=== PATIENT | male | born 1960 | race African-American/Black ===

== ENCOUNTER 2019-04-03 01:55 | Emergency (ER) | payer SELFPAY ==
[2019-04-03] MEDS ORDERED: LABETALOL HCL INJ 20 MG/4 ML DISP.SYRIN IV ONE ×2 (02:42→04:17)
--- NOTE | 2019-04-03 02:46 | ER Document Report ---
ED General - General Chief Complaint: Weakness Stated Complaint: FEELING WEAK,HYPERTENSION Time Seen by Provider: 04/03/19 02:13 - HPI Notes: This is a 58-year-old gentleman who presents today with a complaint of elevated blood pressure and generalized weakness. Patient states that he just feels weak and fatigued. States his blood pressure shot up shortly after he ate. He admits to doing marijuana. EMS reports that he also did some cocaine. Patient did not give me that history. He denies any chest pain. He denies any cardiopulmonary symptoms. He denies any headache. He describes his symptoms as moderate. Patient admits that he has missed some doses of his blood pressure medication. He does, however, have the medication at home. Past Medical History - Social History Smoking Status: Current Some Day Smoker Frequency of alcohol use: None Drug Abuse: Marijuana Family History: Hypertension Patient has suicidal ideation: No Patient has homicidal ideation: No Review of Systems - Review of Systems Constitutional: Malaise, Weakness. denies: Fever Cardiovascular: denies: Chest pain Gastrointestinal: denies: Abdominal pain Neurological/Psychological: Weakness. denies: Numbness Physical Exam - Vital signs Vitals: Resp Pulse Ox 11 L 99 04/03/19 02:16 04/03/19 02:16 Interpretation: Normal - General General appearance: Appears well, Alert - Respiratory Respiratory status: No respiratory distress Chest status: Nontender Breath sounds: Normal Chest palpation: Normal - Cardiovascular Rhythm: Regular Heart sounds: Normal auscultation Murmur: No - Abdominal Inspection: Normal Distension: No distension Bowel sounds: Normal Tenderness: Nontender Organomegaly: No organomegaly - Back Back: Normal, Nontender - Extremities General upper extremity: Normal inspection, Nontender, Normal color, Normal ROM, Normal temperature General lower extremity: Normal inspection, Nontender, Normal color, Normal ROM, Normal temperature. No: Ignacio's sign - Neurological Cognition: Normal Orientation: AAOx4 Gwendolyn Coma Scale Verbal: Oriented - There is no motor, sensory or cerebellar deficits. Nonfocal neurologic exam. GCS is 15. - Skin Skin Temperature: Warm Skin Moisture: Dry Course - Re-evaluation Re-evalutation: 04/03/19 02:46 Differential diagnosis includes essential hypertension versus elect light abnormality versus drug-induced hypertension. Given complaint of weakness, I will get CT scan. Will check basic labs. 04/03/19 05:13 Pt re-evaluated. Doing well. Feels much better. LAbs and imaging reviewed and discussed. BP improved. Pt counseled to take his blood pressure medication as prescribed. He sis table for discharge. - Vital Signs Vital signs: Temp Pulse Resp BP Pulse Ox 80 21 H 154/87 H 100 04/03/19 02:27 04/03/19 05:00 04/03/19 04:40 04/03/19 05:00 - Laboratory Result Diagrams: 04/03/19 02:55 04/03/19 02:55 Laboratory results interpreted by me: 04/03/19 04/03/19 02:55 02:55 RDW 16.5 H Potassium 3.3 L Glucose 157 H Acetaminophen < 10 L Discharge - Discharge Clinical Impression: Weakness Hypertension Qualifiers: Hypertension type: unspecified Qualified Code(s): I10 - Essential (primary) hypertension Condition: Good Disposition: HOME, SELF-CARE Instructions: High Blood Pressure ([facility]), Weakness ([facility]) Additional Instructions: It is important that you take your blood pressure medications as prescribed. Do not miss any doses again. Follow-up with your doctor. Forms: Elevated Blood Pressure
[2019-04-03 03:12] LABS: ABSOLUTE BASOPHILS # (AUTO) 0.1 10^3/uL (0.0-0.2); ABSOLUTE LYMPHOCYTES (AUTO) 1.5 10^3/uL (0.5-4.7); ABSOLUTE MONOCYTES (AUTO) 0.9 10^3/uL (0.1-1.4); ABSOLUTE NEUT (AUTO) 7.1 10^3/uL (1.7-8.2); BASOPHILS % (AUTO) 0.6 % (0-2); EOSINOPHILS % (AUTO) 0.4 % (0-6); HEMATOCRIT 43.1 % (37.9-51.0); HEMOGLOBIN 14.3 g/dL (13.5-17.0); LYMPHOCYTES % (AUTO) 15.5 % (13-45); MEAN CORPUSCULAR HEMOGLOBIN 28.3 pg (27.0-33.4); MEAN CORPUSCULAR HGB CONC 33.2 g/dL (32.0-36.0); MEAN CORPUSCULAR VOLUME 85 fl (80-97); MONOCYTES % (AUTO) 9.3 % (3-13); PLATELET COUNT 166 10^3/uL (150-450); RED BLOOD COUNT 5.07 10^6/uL (4.35-5.55); RED CELL DISTRIBUTION WIDTH 16.5 % (11.5-14.0); SEGMENTED NEUTROPHILS % (AUTO) 74.2 % (42-78); TOTAL CELLS COUNTED % (AUTO) 100 %; WHITE BLOOD COUNT 9.5 10^3/uL (4.0-10.5)
[2019-04-03 03:24] LABS: ALBUMIN 4.2 g/dL (3.5-5.0); ALKALINE PHOSPHATASE 92 U/L (38-126); ANION GAP 9 (5-19); ASPARTATE AMINO TRANSFERASE 25 U/L (17-59); BILIRUBIN,DIRECT 0.2 mg/dL (0.0-0.4); BILIRUBIN,TOTAL 0.5 mg/dL (0.2-1.3); BLOOD UREA NITROGEN 14 mg/dL (7-20); CALCIUM 8.9 mg/dL (8.4-10.2); CARBON DIOXIDE 29 mmol/L (22-30); CHLORIDE 103 mmol/L (98-107); GLUCOSE 157 mg/dL (75-110); POTASSIUM 3.3 mmol/L (3.6-5.0); TOTAL PROTEIN 6.9 g/dL (6.3-8.2)
[2019-04-03 03:27] LABS: ACETAMINOPHEN < 10 ug/mL (10-30); ALCOHOL < 10 mg/dL (NONE DETECTED)
[2019-04-03 03:29] LABS: URINE AMPHETAMINES SCREEN UNCONFIRMED POSITIVE; URINE BARBITURATES SCREEN NEGATIVE; URINE BENZODIAZEPINES SCREEN NEGATIVE; URINE COCAINE SCREEN NEGATIVE; URINE MARIJUANA (THC) SCREEN UNCONFIRMED POSITIVE; URINE METHADONE SCREEN NEGATIVE; URINE PHENCYCLIDINE SCREEN NEGATIVE
--- NOTE | 2019-04-03 05:01 | RADIOLOGY REPORT (SQ) ---
EXAM DESCRIPTION: CT HEAD WITHOUT IV CONTRAST COMPLETED DATE/TME: 04/03/2019 02:40 CLINICAL HISTORY: weakness, ELEVATED BP, HEADACHE COMPARISON: None available TECHNIQUE: Axial CT of the head obtained from the skull apex to the skull base without contrast. FINDINGS: No acute intracranial hemorrhage identified. No mass, mass effect, shift of the midline, abnormal extra-axial fluid collection or CT evidence of acute ischemic change identified. The ventricular system and sulcal spaces are age appropriate. Scattered areas of hypodensity throughout the supratentorial white matter are nonspecific and may be related to chronic small vessel ischemic change. Polypoid mucosal thickening of the left maxillary sinus. Mastoid air cells are well aerated. No skull fracture identified. Visualized orbits and globes are unremarkable. Atherosclerotic calcification of the intracranial internal carotid arteries. DLP: 1017.17 mGy-cm IMPRESSION: 1. No acute intracranial abnormality by CT criteria. This exam was performed according to our departmental dose-optimization program, which includes automated exposure control, adjustment of the mA and/or kV according to patient size and/or use of iterative reconstruction technique.
[2019-04-03 05:13] VITALS: BP 154/87
== END 2019-04-03 05:34 | disposition home or self-care (01) ==
LOC: ER 01:55
DX: R53.1 Weakness (principal); I10 Essential (primary) hypertension; R53.83 Other fatigue; F12.90 Cannabis use, unspecified, uncomplicated; Z79.899 Other long term (current) drug therapy; R53.81 Other malaise
CPT/HCPCS: 96376; 99284; 96374; 36415; 80307 ×3; 85025; 80053; 70450; J3490

== ENCOUNTER 2019-04-04 15:46 | Emergency (ER) | payer SELFPAY ==
--- NOTE | 2019-04-04 15:58 | ER Document Report ---
ED Medical Screen (RME) - General Chief Complaint: General Weakness Stated Complaint: WEAKNESS Time Seen by Provider: 04/04/19 15:52 Mode of Arrival: Medic Information source: Patient Notes: This 58-year-old male with history of high blood pressure and diabetes presents to the emergency department with reports of feeling weak. Reports he has been feeling this way for the last couple days. Reports couple days ago he ingested meth. He reports he was at a drug house and was eating when the meth was set by his plate. Reports he does not usually eat or take meth. Reports he does smoke marijuana. Denies fever vomiting diarrhea. Reports his diabetes is diet controlled. Patient reports he did take his blood pressure medication today. Patient was evaluated and treated in the emergency department earlier today. I have greeted and performed a rapid initial assessment of this patient. A comprehensive ED assessment and evaluation of the patient, analysis of test results and completion of the medical decision making process will be conducted by additional ED providers. Dictation of this chart was performed using voice recognition software; therefore, there may be some unintended grammatical errors. - Related Data Allergies/Adverse Reactions: No Known Allergies Allergy (Verified 04/04/19 15:54)
[2019-04-04 16:25] LABS: ABSOLUTE BASOPHILS # (AUTO) 0.1 10^3/uL (0.0-0.2); ABSOLUTE EOSINOPHILS # (AUTO) 0.1 10^3/uL (0.0-0.6); ABSOLUTE LYMPHOCYTES (AUTO) 2.3 10^3/uL (0.5-4.7); ABSOLUTE MONOCYTES (AUTO) 1.1 10^3/uL (0.1-1.4); MONOCYTES % (AUTO) 15.5 % (3-13); RED BLOOD COUNT 5.73 10^6/uL (4.35-5.55); RED CELL DISTRIBUTION WIDTH 16.3 % (11.5-14.0); TOTAL CELLS COUNTED % (AUTO) 100 %
[2019-04-04 16:28] LABS: ABSOLUTE NEUT (AUTO) 3.5 10^3/uL (1.7-8.2); BASOPHILS % (AUTO) 1.1 % (0-2); HEMATOCRIT 48.3 % (37.9-51.0); HEMOGLOBIN 15.9 g/dL (13.5-17.0); LYMPHOCYTES % (AUTO) 31.8 % (13-45); MEAN CORPUSCULAR HEMOGLOBIN 27.8 pg (27.0-33.4); MEAN CORPUSCULAR VOLUME 84 fl (80-97); PLATELET COUNT 202 10^3/uL (150-450); SEGMENTED NEUTROPHILS % (AUTO) 49.6 % (42-78); WHITE BLOOD COUNT 7.1 10^3/uL (4.0-10.5)
[2019-04-04 16:46] LABS: ALBUMIN 4.1 g/dL (3.5-5.0); ALKALINE PHOSPHATASE 92 U/L (38-126); ANION GAP 9 (5-19); ASPARTATE AMINO TRANSFERASE 24 U/L (17-59); BILIRUBIN,TOTAL 0.9 mg/dL (0.2-1.3); BLOOD UREA NITROGEN 16 mg/dL (7-20); CALCIUM 9.1 mg/dL (8.4-10.2); CARBON DIOXIDE 29 mmol/L (22-30); CHLORIDE 102 mmol/L (98-107); GLUCOSE 123 mg/dL (75-110); POTASSIUM 3.4 mmol/L (3.6-5.0); TOTAL PROTEIN 7.2 g/dL (6.3-8.2)
--- NOTE | 2019-04-04 16:50 | ER Document Report ---
ED General - General Chief Complaint: General Weakness Stated Complaint: WEAKNESS Time Seen by Provider: 04/04/19 15:52 Mode of Arrival: Medic - HPI Notes: 58 year old male to the ED with C/O generalized weakness and poor appetite for the several days. States this started after "I accidentally ate meth" while spending time with a friend. He was seen yesterday for the same, but returns as he feels no better. Denies any fevers, chills, lightheadedness, chest pain, SOB, NVD. Also admits later in the interview that possibly there was also cocaine in the drugs he ate. He states he does not use drugs on a regular basis. His states she has been trying to get him to drink fluids and eat but he has not been interested. Denies chest pain, SOB, NVD, abd pain, urinary complaints. - Related Data Allergies/Adverse Reactions: No Known Allergies Allergy (Verified 04/04/19 15:54) Past Medical History - General Information source: Patient, Relative - Social History Smoking Status: Former Smoker Chew tobacco use (# tins/day): No Frequency of alcohol use: None Drug Abuse: Cocaine, Marijuana, Methamphetamine Family History: Hypertension Patient has suicidal ideation: No Patient has homicidal ideation: No Review of Systems - Review of Systems Constitutional: Malaise, Weakness. denies: Chills, Diaphoresis, Fever EENT: No symptoms reported Cardiovascular: denies: Chest pain, Palpitations, Heart racing, Orthopnea, Dyspnea, Syncope, Dizziness, Lightheaded Respiratory: denies: Cough, Short of breath Gastrointestinal: denies: Abdominal pain, Diarrhea, Nausea, Vomiting Genitourinary: No symptoms reported Musculoskeletal: No symptoms reported Skin: No symptoms reported Neurological/Psychological: denies: Seizure, Lost consciousness, Headaches, Numbness, Tingling -: Yes All other systems reviewed and negative Physical Exam - Vital signs Vitals: Temp Pulse Resp BP Pulse Ox 98.1 F 89 16 162/78 H 100 04/04/19 19:20 04/04/19 19:20 04/04/19 19:20 04/04/19 19:20 04/04/19 19:20 Interpretation: Hypertensive - General General appearance: Appears well, Alert - HEENT Head: Normocephalic, Atraumatic Eyes: Normal Pupils: PERRL Ears: Normal External canal: Normal Tympanic membrane: Normal Sinus: Normal Nasal: Normal Mouth/Lips: Normal Mucous membranes: Normal Pharynx: Normal Neck: Normal, Supple. No: Meningismus - Respiratory Respiratory status: No respiratory distress Chest status: Nontender Breath sounds: Normal. No: Rales, Rhonchi, Stridor, Wheezing Chest palpation: Normal - Cardiovascular Rhythm: Regular Heart sounds: Normal auscultation Murmur: No - Abdominal Inspection: Normal Distension: No distension Bowel sounds: Normal Tenderness: Nontender Organomegaly: No organomegaly - Back Back: Normal, Nontender - Neurological Neuro grossly intact: Yes Cognition: Normal Orientation: AAOx4 Gwendolyn Coma Scale Eye Opening: Spontaneous Gwendolyn Coma Scale Verbal: Oriented Gwendolyn Coma Scale Motor: Obeys Commands Gwendolyn Coma Scale Total: 15 Speech: Normal. No: Dysarthria, Expressive aphasia, Receptive aphasia Cranial nerves: Normal. No: Facial palsy, Forehead sparing, Gaze palsy, Sensory deficit, Tongue deviation Cerebellar coordination: Normal. 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 No: Pronator drift Sensory: Normal - Psychological Associated symptoms: Normal affect, Normal mood - Skin Skin Temperature: Warm Skin Moisture: Dry Skin Color: Normal Course - Re-evaluation Re-evalutation: Progress: Patient is feeling much better. Noted labs which are reassuring -- they are trending well from the ones yesterday. EKG is reassuring. Troponin negative. Noted slightly elevated CPK. Will discharge patient home. Encouraged pushing fluids and avoiding drugs in the future. Patient agrees with the plan. IMPRESSION: WEAKNESS, DRUG INGESTION. Will discharge home. Encouraged to return if he is worsening. PCP follow up. - Vital Signs Vital signs: Temp Pulse Resp BP Pulse Ox 98.1 F 89 16 162/78 H 100 04/04/19 19:20 04/04/19 19:20 04/04/19 19:20 04/04/19 19:20 04/04/19 19:20 - Laboratory Result Diagrams: 04/04/19 16:05 04/04/19 16:05 Laboratory results interpreted by me: 04/04/19 04/04/19 04/04/19 16:05 16:05 16:05 RBC 5.73 H RDW 16.3 H [place] % (Auto) 15.5 H Potassium 3.4 L Glucose 123 H Creatine Kinase 205 H Urine Protein Urine Ketones Salicylates < 1.0 L Acetaminophen < 10 L 04/04/19 17:30 RBC RDW [place] % (Auto) Potassium Glucose Creatine Kinase Urine Protein 30 H Urine Ketones 20 H Salicylates Acetaminophen - EKG Interpretation by Me EKG shows normal: Sinus rhythm Rate: Normal Additional EKG results interpreted by me: NO STEMI, non specific t wave abnormalities. Discharge - Discharge Clinical Impression: Hypokalemia, Weakness Condition: Stable Disposition: HOME, SELF-CARE Instructions: Hypokalemia ([facility]) Additional Instructions: PUSH FLUIDS. REST AT HOME. AVOID ANY FURTHER ILLICIT DRUGS. FOLLOW UP WITH PRIMARY CARE WITHOUT FAIL ON SATURDAY. RETURN IF WORSENING SYMPTOMS.
[2019-04-04 16:52] LABS: ACETAMINOPHEN < 10 ug/mL (10-30); ALCOHOL < 10 mg/dL (NONE DETECTED); SALICYLATE < 1.0 mg/dL (2.0-20.0)
[2019-04-04] MEDS ORDERED: NORMAL SALINE 1000 ML 1,000 ML IV ONE (16:54)
[2019-04-04 17:58] LABS: APPEARANCE,URINE CLEAR; BILIRUBIN,URINE NEGATIVE (NEGATIVE); COLOR,URINE YELLOW; GLUCOSE, URINE NEGATIVE (NEGATIVE); KETONES,URINE 20 mg/dL (NEGATIVE); LEUKOCYTE ESTERASE,URINE NEGATIVE (NEGATIVE); NITRITE,URINE NEGATIVE (NEGATIVE); PROTEIN,URINE 30 mg/dL (NEGATIVE); UROBILINOGEN,URINE NEGATIVE mg/dL (<2.0)
[2019-04-04 18:18] LABS: URINE BARBITURATES SCREEN NEGATIVE; URINE BENZODIAZEPINES SCREEN NEGATIVE; URINE COCAINE SCREEN UNCONFIRMED POSITIVE; URINE MARIJUANA (THC) SCREEN UNCONFIRMED POSITIVE; URINE METHADONE SCREEN NEGATIVE; URINE PHENCYCLIDINE SCREEN NEGATIVE
[2019-04-04] MEDS ORDERED: POTASSIUM CHLORIDE 10 MEQ CAPSULE.ER PO ONE (18:37)
[2019-04-04 19:24] VITALS: BP 162/78
--- NOTE | 2019-04-04 22:11 | EKG REPORT ---
SEVERITY:- BORDERLINE ECG - SINUS RHYTHM PROBABLE LEFT ATRIAL ABNORMALITY BORDERLINE LEFT AXIS DEVIATION BORDERLINE T ABNORMALITIES, ANT-LAT LEADS : Confirmed by: Orlando Rojas MD 04-Apr-2019 22:09:06
== END 2019-04-04 19:25 | disposition home or self-care (01) ==
LOC: ER 15:46
DX: E87.6 Hypokalemia (principal); R53.1 Weakness; R63.0 Anorexia; R53.81 Other malaise; F14.10 Cocaine abuse, uncomplicated; F15.10 Other stimulant abuse, uncomplicated; Z87.891 Personal history of nicotine dependence
CPT/HCPCS: 93005; 99285; 96360; 96361; 36415; 80307 ×4; 82550; 83735; 85025; 80053; 81001; 84484; 93010; J7030